=== PATIENT | female | born 1970 | race Caucasian/White ===

== ENCOUNTER 2018-05-30 11:32 | Inpatient (IN) | payer BC ==
[~2018-05-30] VITALS: Ht 157.5 cm; Wt 81.8 kg
[2018-05-30 12:05] VITALS: BP 116/60; PULSE 105; RESP 18
[2018-05-30 12:28] VITALS: Ht 157.5 cm; Wt 81.8 kg
[2018-05-30] MEDS ORDERED: hydrALAzine 20 MG INJ IV PRN (13:30)
[2018-05-30] MEDS ORDERED: NACL 0.9% 3 ML SYG IV SCH (13:30)
[2018-05-30] MEDS ORDERED: HYDROCODONE/APAP (5/325) TAB PO PRN (13:30)
[2018-05-30] MEDS ORDERED: DOCUSATE SODIUM 100 MG CAP PO PRN (13:30)
[2018-05-30] MEDS ORDERED: ACETAMINOPHEN 325 MG TAB PO PRN (13:30)
[2018-05-30] MEDS ORDERED: morphine 2 MG INJ IV PRN (13:30)
[2018-05-30] MEDS ORDERED: ALBUTEROL/IPRATROPIUM (NEB) 3 ML AMP HHN PRN (13:30)
[2018-05-30] MEDS ORDERED: NITROGLYCERIN (SL) 0.4 MG TAB SL PRN (13:30)
[2018-05-30] MEDS ORDERED: MAGNESIUM HYDROXIDE 30ML CUP PO PRN (13:30)
[2018-05-30] MEDS ORDERED: CEFTRIAXONE 1 GM/50 ML (PMX) 50 ML IVPB SCH (14:00)
[2018-05-30] MEDS ORDERED: LORAZEPAM 4 MG/ML VIAL IV PRN (14:00)
[2018-05-30 15:23] VITALS: BP 121/60; PULSE 105; RESP 17
--- NOTE | 2018-05-30 15:46 | HP ---
Date/Time of Note Date/Time of Note DATE: 05/30/18 TIME: 15:40 Assessment/Plan VTE Prophylaxis SCD applied (from Nsg): No SCD contraindicated: other Pharmacological prophylaxis: heparin Lines/Catheters IV Catheter Type (from Nrsg): Saline Lock Urinary Cath still in place: No Assessment/Plan Hospital Course Assessment and plan: 47-year-old female transferred from outside hospital with right flank pain for 2 days with findings of tubo-ovarian abscess/pelvic inflammatory disease. #Right lower quadrant pain: Again most likely the symptoms are from a right tubo-ovarian abscess/PID. -Admit patient, clear liquid diet for now, check TSH A1c lipid panel -Continue broad-spectrum antibiotics including doxycycline and Rocephin, follow final culture results these were taken at the outside hospital -Tylenol PRN pain fevers, per discussion with INTERNATIONAL LOGISTICS MANAGER team who we will consult, they are recommending another CT scan with IV contrast as well as CT- guided IR drainage procedure - this will be ordered -Pain control medications opiates as needed as well -Follow final recommendations from infectious disease and INTERNATIONAL LOGISTICS MANAGER teams Results 24hrs Laboratory Tests Test 05/30/18 13:52 05/30/18 14:55 Lactic Acid Level 1.1 Free Thyroxine 1.20 Prothrombin Time 14.3 Prothrombin Time Ratio 1.1 INR International Normalized Ratio 1.10 Activated Partial Thromboplast Time 30.9 HPI/ROS Admit Date/Time Admit Date/Time May 30, 2018 at 11:32 Hx of Present Illness 47-year-old female with no significant past medical history who was sent over from outside hospital due to insurance purposes. She presented earlier this morning with right flank pain and right lower quadrant pain. She had some subjective fevers and chills as well she had some mild dysuria as well complaints the symptoms have been going on for 2 days prior to the visit to the ER this morning. Denies any nausea vomiting no chest pain or shortness of breath no upper or lower GI bleeding she says that she has been having some abnormal vaginal her heavy periods but this is been going on for some time her main complaint is the right lower quadrant pain. When she presented to the outside hospital she was found with a white blood cell count 21,[address] scan abdomen and pelvis which showed signs of a right-sided tubo-ovarian abscess. She received Rocephin and doxycycline over there in the emergency room before being transferred over here and blood cultures were ordered along with chlamydia and gonorrhea tests. Patient denies any prior history of any pelvic infections. PMH/Family/Social Past Medical History Medications Current Medications IV Flush (NS 3 ml) 3 ml PER PROTOCOL IV ; Start 05/30/18 at 13:30 Ondansetron HCl (Zofran Inj) 4 mg Q6H PRN IV NAUSEA AND/OR VOMITING; Start 05/30/18 at 13:30 Acetaminophen (Tylenol Tab) 650 mg Q6H PRN PO PAIN LEVEL 1-3 OR FEVER Last administered on 05/30/18at 14:24; Admin Dose 650 MG; Start 05/30/18 at 13:30 Acetaminophen/ Hydrocodone Bitart ([place] (5/325)) 1 tab Q6H PRN PO MODERATE PAIN LEVEL 4-6; Start 05/30/18 at 13:30 Morphine Sulfate (morphine) 2 mg Q4H PRN IV SEVERE PAIN LEVEL 7-10; Start 05/30/18 at 13:30 Docusate Sodium (Colace) 100 mg Q12H PRN PO CONSTIPATION; Start 05/30/18 at 13:30 Magnesium Hydroxide (Milk Of Mag) 30 ml DAILY PRN PO CONSTIPATION; Start at 13:30 Pantoprazole (Protonix Iv) 40 mg DAILY@06 IV ; Start 05/31/18 at 06:00 Heparin Sodium (Porcine) (Heparin (5000 Units/1ml)) 5,000 unit Q12 SC ; Start 05/30/18 at 21:00 Sodium Chloride 1,000 ml @ 75 mls/hr [id number] IV ; Start 05/30/18 at 13:18 Lorazepam (Ativan) 0.5 mg Q6H PRN IV ANXIETY; Start 05/30/18 at 14:00 Albuterol/ Ipratropium (Duoneb) 3 ml Q4H RESP THERAPY PRN HHN SHORTNESS OF BREATH; Start 05/30/18 at 13:30 Hydralazine HCl (Apresoline) 10 mg Q6H PRN IV ELEVATED BLOOD PRESSURE; Start at 13:30 Ceftriaxone Sodium 50 ml @ 100 mls/hr Q24H IVPB ; Start 05/30/18 at 14:00 Nitroglycerin (Nitroglycerin (Sl Tab) 0.4 Mg) 1 tab Q5M PRN SL ANGINA; Start 05/30/18 at 13:30 Doxycycline Hyclate 100 mg/ Sodium Chloride 250 ml @ 250 mls/hr Q12 IVPB ; Start 05/30/18 at 21:00 Coded Allergies: No Known Allergy (Unverified , 05/30/18) Social History Smoking Status: Never smoker Exam/Review of Systems Vital Signs Vitals Vital Signs Date Temp Pulse Resp B/P (MAP) Pulse Ox O2 O2 Flow FiO2 Time Delivery Rate 05/30/18 98.6 105 17 121/60 97 15:23 (80) 05/30/18 Room Air 12:05 Exam Exam Physical exam: General: Lying in bed, no acute distress HEENT: Pupils equal round reactive to light extra muscles intact Neck: Supple Respiratory: Clear to all station bilaterally Cardiovascular: S1, S2 heard GI/abdomen: Mild tenderness palpation right lower quadrant area, no rebound or guarding, normal bowel sounds Muscular skeletal: No lower exam edema bilaterally Neurologic: No focal deficits Outside labs: White blood cell count 21.8 Hemoglobin 10 Hematocrit 32 Platelets 626 Sodium 134 Glucose 117 LFTs: Within normal limits UA: Trace leukocyte esterase positive, positive nitrates, 1+ bacteria CT abdomen pelvis without contrast: Impression: 6.2 cm oval-shaped focus in the region of the right ovary with surrounding inflammatory changes. Findings could be infectious, possibly secondary to pelvic inflammatory disease, especially given the enlarged uterus. JOSE DANIEL DENISE May 30, 2018 15:46
[2018-05-30] MEDS ORDERED: ZOLPIDEM 5 MG TAB PO PRN (16:00)
[2018-05-30] MEDS ORDERED: IOHEXOL 14.3 MG(I)/ML (ADULT) BTL PO ONE (16:00)
--- NOTE | 2018-05-30 16:37 | QN ---
Documentation Comment Thank you for consulting with Muffler Mechanic team 47 yo with suspected tuboovarian abscess transferred from [facility] due to Insurance problems Patient reports a 2 days abdomen and back pain with some urinary symptoms CT scan report from [facility] reviewed PMH Denies PSH Denies Allergy NKDA PE VS stable Gen NAD Abd soft Mildly tender on the left side +Left and Right CVA tenderness WBC 21k --->Tumor markers --->CT drainage of possible Abscess --->Pyelonephritis is a highly possible Dx --->Wide spectrum Antibiotics --->Pls let Muffler Mechanic know if there is any new signs and symptoms GEOFFREY MONTEZ M.D. May 30, 2018 16:37
[2018-05-30] MEDS: SOD CHLORIDE 0.45% 1,000 ML IV SCH (16:39)
[2018-05-30] MEDS: ACETAMINOPHEN 500 MG TAB PO PRN (16:40)
--- NOTE | 2018-05-30 18:35 | CONS ---
DATE OF ADMISSION: 05/30/2018 DATE OF CONSULTATION: 05/30/2018 TYPE OF CONSULTATION: Infectious disease. REASON FOR CONSULTATION: Antibiotic management. HISTORY OF PRESENT ILLNESS: Zoila Rodriguez is a 47-year-old female with no significant past medical h istory who was sent from an outside hospital with probable urinary tract infection. The patient pres ented with right flank pain and right lower quadrant pain. She has some subjective fever and chills, some mild dysuria as well as complaints that her symptoms have been going on for 2 days prior to her ER visit this morning. She has been having some abnormal vaginal periods, but this has been going o n for some time as well. When she presented to the outside hospital, she was found to have a white c ount of 21,000. CT scan of the abdomen and pelvis showed signs of right-sided tubo-ovarian abscess. She received Rocephin and doxycycline there in emergency room before being transferred here. Blood cultures were ordered along with chlamydia and GC tests. She denies any history of previous pelvic i nfections. PAST MEDICAL HISTORY: Operations: None. FAMILY HISTORY: Noncontributory. SOCIAL HISTORY: She does not smoke, drink or abuse drugs. ALLERGIES: NONE TO PENICILLIN, SULFA OR FOODS. MEDICATIONS: Per chart. REVIEW OF SYSTEMS: As per HPI. PHYSICAL EXAMINATION: GENERAL: The patient is well-developed, well-nourished female lying in bed in no acute distress. VITAL SIGNS: Stable. She is afebrile. SKIN: Without generalized rash. HEENT: Within normal limits. NECK: Supple. LYMPH NODES: None palpable. CHEST: Decreased breath sounds at the bases. HEART: Without murmur or gallop. ABDOMEN: She has mild tenderness to palpation in the right lower quadrant without rebound or guardin g. Normal bowel sounds. EXTREMITIES: Without cyanosis, clubbing or edema. RECTAL AND GENITAL: Deferred. NEUROLOGIC: No focal neurological abnormality. ANCILLARY LABORATORY DATA: Hemoglobin and hematocrit of 10 and 32, white count 21.8, platelet count 626,000. LFTs were within normal limits. Urinalysis showed trace leukocyte esterase and positive ni trites, 1+ bacteria. DIAGNOSTIC DATA: CT scan of the abdomen and pelvis without contrast showed 6.2 cm oval shaped focus in the region of the right ovary with surrounding inflammatory changes. Findings could be infectious , possibly secondary to pelvic inflammatory disease especially given an enlarged uterus. ASSESSMENT AND PLAN: Gynecology was consulted. Dr. Narayanan noted that there is a suspected tubo-ov janneth abscess, transferred from [facility], 2-day history of abdominal and back pain with so me urinary symptoms. CT scan from [facility] was reviewed. The patient had left and righ t costovertebral angle tenderness according to Dr. Narayanan. He recommended tumor markers, CT draina ge with possible abscess. Pyelonephritis is high possible diagnosis, wide spectrum antibiotics. The patient is currently on doxycycline and ceftriaxone. THE PATIENT IS NOT ALLERGIC TO ANYTHING, so I am going to place her on meropenem instead 1 gram q.12. I will dictate my findings to the hospital a nd to Dr. Narayanan. Dictated By: ALFIE JAFFE MD, JD/JUICE Conf#: [id number] DID#: [id number] CC: DL LIMA MD;*EndCC*
[2018-05-30 20:00] VITALS: BP 122/65; PULSE 105; RESP 18
[2018-05-30] MEDS ORDERED: IBUPROFEN 400 MG TAB PO ONE (21:30)
[2018-05-30] MEDS: MEROPENEM 1 GM/50ML(PMX) 50 ML IVPB SCH (21:33)
[2018-05-30] MEDS: HEPARIN 5,000 UNIT/1 ML VIAL SC SCH (21:36)
[2018-05-30] MEDS: DOXYCYCLINE 100 MG in SOD CHLORIDE 0.9% 250 ML IVPB SCH (22:30)
[2018-05-31] MEDS ORDERED: ACETAMINOPHEN 1000MG/100ML IV 100 ML IVPB ONE (01:00)
[2018-05-31 02:18] VITALS: BP 118/62; PULSE 108; RESP 18
[2018-05-31] MEDS: SOD CHLORIDE 0.45% 1,000 ML IV SCH ×2 (02:38→09:27)
[2018-05-31] MEDS: PANTOPRAZOLE 40 MG INJ IV SCH (06:18)
[2018-05-31 06:24] VITALS: PULSE 93
[2018-05-31 08:02] VITALS: BP 118/67; PULSE 98; RESP 18
[2018-05-31] MEDS: MEROPENEM 1 GM/50ML(PMX) 50 ML IVPB SCH ×2 (08:31→20:20)
[2018-05-31] MEDS: DOXYCYCLINE 100 MG in SOD CHLORIDE 0.9% 250 ML IVPB SCH ×2 (09:08→21:35)
[2018-05-31] MEDS: ONDANSETRON 4 MG INJ IV PRN (09:08)
[2018-05-31] MEDS: HEPARIN 5,000 UNIT/1 ML VIAL SC SCH ×2 (09:09→20:28)
[2018-05-31] MEDS ORDERED: morphine SULFATE/PF (2 MG/2 ML) SYG IV PRN (10:15)
[2018-05-31] MEDS ORDERED: SOD CHLORIDE 0.9% 100 ML ONE (10:15)
[2018-05-31] MEDS ORDERED: IOHEXOL 300MG/ML 150 ML BTL ONE (10:15)
[2018-05-31 14:00] VITALS: BP 128/64; PULSE 114; RESP 18
--- NOTE | 2018-05-31 14:10 | CONS ---
Date/Time of Note Date/Time of Note DATE: 05/31/18 TIME: 14:10 Assessment/Plan Assessment/Plan Hospital Course Patient is alert feels better looks comfortable she is afebrile pain is improving she had a CT of the abdomen this morning that revealed pelvic inflammatory disease and right-sided tubo-ovarian abscess also left sided salpingitis without definite left tubo-ovarian abscess. Inflammatory changes of the mid to distal ureters right greater than left without evidence of hydronephrosis at this time Antimicrobials: Patient is on meropenem and doxycycline. Physical examination: Well-nourished well-developed middle-aged woman who is alert in no distress. Head atraumatic normocephalic sclera nonicteric neck is supple chest rise symmetrical breath sounds clear heart S1-S2 abdomen soft patient has tenderness on palpation more on the right. Extremities without edema or cyanosis. Assessment: 1. Pelvic inflammatory disease with right-sided tubo-ovarian abscess 2. Left sided salpingitis Plan: Patient remained stable we will continue her on current antibiotics, follow with JIGSAWYER recommendations Result Diagram: 05/31/18 0548 05/31/18 0548 Results 24hrs Laboratory Tests Test 05/30/18 14:55 05/30/18 17:34 05/30/18 21:45 05/31/18 00:50 Prothrombin Time 14.3 Prothrombin Time Ratio 1.1 INR International 1.10 Normalized Ratio Activated 30.9 Partial Thromboplast Time Lactic Acid Level 0.8 2.1 *H 0.8 Test 05/31/18 05:48 05/31/18 10:03 White Blood Count 15.9 H Red Blood Count 3.57 L Hemoglobin 8.4 L Hematocrit 27.7 L Mean Corpuscular Volume 77.6 L Mean Corpuscular 23.5 L Hemoglobin Mean Corpuscular 30.3 L Hemoglobin Concent Red Cell Distribution 14.2 Width Platelet Count 502 H Mean Platelet Volume 9.4 Immature Granulocytes % 0.800 H Neutrophils % 74.4 Lymphocytes % 15.4 Monocytes % 8.3 Eosinophils % 0.5 Basophils % 0.6 Nucleated Red Blood 0.0 Cells % Immature Granulocytes # 0.120 H Neutrophils # 11.9 H Lymphocytes # 2.5 Monocytes # 1.3 H Eosinophils # 0.1 Basophils # 0.1 Nucleated Red Blood 0.0 Cells # Sodium Level 141 Potassium Level 3.4 L Chloride Level 105 Carbon Dioxide Level 25 Anion Gap 11 Blood Urea Nitrogen 5 L Creatinine 0.49 Est Glomerular Filtrat > 60 Rate mL/min Glucose Level 104 Hemoglobin A1c 6.1 H Lactic Acid Level 0.9 1.2 Calcium Level 8.3 L Phosphorus Level 4.0 Magnesium Level 2.3 Triglycerides Level 144 Cholesterol Level 150 LDL Cholesterol, 97 Calculated HDL Cholesterol 24 L Cholesterol/HDL Ratio 6.2 Thyroid Stimulating 2.440 Hormone (TSH) Consultation Date/Type/Reason Admit Date/Time May 30, 2018 at 11:32 Initial Consult Date Type of Consult id Exam/Review of Systems Vital Signs Vitals Vital Signs Date Temp Pulse Resp B/P (MAP) Pulse Ox O2 O2 Flow FiO2 Time Delivery Rate 05/31/18 98.2 98 18 118/67 98 Room Air 08:02 (84) Intake and Output 05/30/18 05/30/18 05/31/18 1515:00 23:00 07:00 IntakeIntake Total 700 ml 1050 ml OutputOutput Total 700 ml 550 ml BalanceBalance 0 ml 500 ml Medications Medications Current Medications IV Flush (NS 3 ml) 3 ml PER PROTOCOL IV ; Start 05/30/18 at 13:30 Ondansetron HCl (Zofran Inj) 4 mg Q6H PRN IV NAUSEA AND/OR VOMITING Last administered on 05/31/18at 09:08; Admin Dose 4 MG; Start 05/30/18 at 13:30 Acetaminophen/ Hydrocodone Bitart ([place] (5/325)) 1 tab Q6H PRN PO MODERATE PAIN LEVEL 4-6; Start 05/30/18 at 13:30 Docusate Sodium (Colace) 100 mg Q12H PRN PO CONSTIPATION; Start 05/30/18 at 13:30 Magnesium Hydroxide (Milk Of Mag) 30 ml DAILY PRN PO CONSTIPATION; Start 05/30/18 at 13:30 Pantoprazole (Protonix Iv) 40 mg DAILY@06 IV Last administered on 05/31/18at 06:18; Admin Dose 40 MG; Start 05/31/18 at 06:00 Heparin Sodium (Porcine) (Heparin (5000 Units/1ml)) 5,000 unit Q12 SC Last administered on 05/31/18at 09:09; Admin Dose 5,000 UNIT; Start 05/30/18 at 21:00 Sodium Chloride 1,000 ml @ 75 mls/hr [id number] IV Last administered on 05/31/18 09:27; Admin Dose 75 MLS/HR; Start 05/30/18 at 13:18 Lorazepam (Ativan) 0.5 mg Q6H PRN IV ANXIETY; Start 05/30/18 at 14:00 Albuterol/ Ipratropium (Duoneb) 3 ml Q4H RESP THERAPY PRN HHN SHORTNESS OF BREATH; Start 05/30/18 at 13:30 Hydralazine HCl (Apresoline) 10 mg Q6H PRN IV ELEVATED BLOOD PRESSURE; Start 05/30/18 at 13:30 Nitroglycerin (Nitroglycerin (Sl Tab) 0.4 Mg) 1 tab Q5M PRN SL ANGINA; Start 05/30/18 at 13:30 Doxycycline Hyclate 100 mg/ Sodium Chloride 250 ml @ 250 mls/hr Q12 IVPB Last administered on 05/31/18at 09:08; Admin Dose 250 MLS/HR; Start 05/30/18 at 21:00 Zolpidem Tartrate (Ambien) 5 mg HS PRN PO INSOMNIA; Start 05/30/18 at 16:00 Acetaminophen (Tylenol Tab) 1,000 mg Q6H PRN PO PAIN LEVEL 1-3 OR FEVER Last administered on 05/30/18at 16:40; Admin Dose 1,000 MG; Start 05/30/18 at 16:00 Meropenem/Sodium Chloride 50 ml @ 100 mls/hr Q12 IVPB Last administered on 05/31/18at 08:31; Admin Dose 100 MLS/HR; Start 05/30/18 at 21:00 Potassium Chloride (Potassium Chloride Pwd/Soln) 40 meq ONCE ONCE PO ; Start 05/31/18 at 15:00; Stop 05/31/18 at 15:01 Morphine Sulfate (morphine SULFATE (PF)) 2 mg Q4H PRN IV SEVERE PAIN LEVEL 7-10 Last administered on 05/31/18at 10:21; Admin Dose 2 MG; Start 05/31/18 at 10:15 JUAN KIRK NP May 31, 2018 14:10
[2018-05-31] MEDS: GUAIFENESIN 20 MG/ML 5ML CUP PO PRN ×2 (14:21→21:29)
[2018-05-31] MEDS: IBUPROFEN 600 MG TAB PO PRN (14:21)
[2018-05-31] MEDS ORDERED: GUAIFENESIN 20 MG/ML 5ML CUP PO PRN (14:30)
[2018-05-31] MEDS ORDERED: POTASSIUM CHLORIDE 20 MEQ POWDER FOR ORAL SOLN PO ONE (15:00)
--- NOTE | 2018-05-31 15:48 | QN ---
Documentation Comment F/u Experimental Box Tester Visit Patient is seen by Bedside Pyelonephritis vs TOA No clear Abscess by CT Vs stable WBC decreased to 15k Gen NAD Abd soft NT ND Geinita No blood at perineum --->NO Acute Experimental Box Tester intervention is needed at this time -->Patient complains of irregular menstruation-->She is advised to follow up with a Experimental Box Tester in her [place] to have a D&C&Hysteroscopy or endometrial biopsy -->Please continue the Antibiotics GEOFFREY MONTEZ M.D. May 31, 2018 15:48
--- NOTE | 2018-05-31 16:16 | PN ---
Date/Time of Note Date/Time of Note DATE: 05/31/18 TIME: 16:07 Assessment/Plan VTE Prophylaxis Risk score (from Nsg)>0 risk: 2 SCD applied (from Ns): No SCD contraindicated: other (no) Pharmacological prophylaxis: NA/contraindicated Pharm contraindication: low risk/ambulating Lines/Catheters IV Catheter Type (from Nrsg): Saline Lock Urinary Cath still in place: No Assessment/Plan Assessment/Plan 47 yo obese woman presents with tubo-ovarian abscess and likely PID. #Probable pelvic inflammatory disease #Tubo-ovarian abscess - As demonstrated on repeat CT abdomen here. - Continue broad-spectrum antibiotics including doxycycline and meropenem, follow final culture results these were taken at the outside hospital - ID is following. - IR is unable to drain the complex cyst/abscess near the ovary. - Per discussion with Dr. Narayanan, plan to continue IV antibiotics until sepsis settles down and consider OR in 2-3 days. - Pain meds prn. DVT: SCDs GI: None Result Diagram: 05/31/1848 05/31/18 0548 Subjective 24 Hr Interval Summary Free Text/Dictation Febrile to 101.3 last night. Patient tolerating clear liquid diet with no nausea/vomiting. She is ambulatory and walking actually improves the pain. She does report an episode of gross hematuria. Exam/Review of Systems Vital Signs Vitals Vital Signs Date Temp Pulse Resp B/P (MAP) Pulse Ox O2 O2 Flow FiO2 Time Delivery Rate 05/31/18 98.3 114 18 128/64 96 Room Air 14:00 (85) Intake and Output 05/30/18 05/30/18 05/31/18 1515:00 23:00 07:00 IntakeIntake Total 700 ml 1050 ml OutputOutput Total 700 ml 550 ml BalanceBalance 0 ml 500 ml Exam General: Obese woman lying in bed no acute distress. HEENT: Pupils equal round reactive to light extra muscles intact Neck: Supple Respiratory: Clear to auscultation bilaterally. Back: No CVA tenderness. Cardiovascular: Regular rate and rhythm, no murmurs GI/abdomen: Tender to moderate palpation suprapubic and both lower quadrants. No referred pain or rebound tenderness. Ext: No lower extremity edema bilaterally Outside labs: White blood cell count 21.8 Hemoglobin 10 Hematocrit 32 Platelets 626 Sodium 134 Glucose 117 LFTs: Within normal limits UA: Trace leukocyte esterase positive, positive nitrates, 1+ bacteria CT abdomen pelvis without contrast: Impression: 6.2 cm oval-shaped focus in the region of the right ovary with surrounding inflammatory changes. Findings could be infectious, possibly secondary to pelvic inflammatory disease, especially given the enlarged uterus. Medications Medications Current Medications IV Flush (NS 3 ml) 3 ml PER PROTOCOL IV ; Start 05/30/18 at 13:30 Ondansetron HCl (Zofran Inj) 4 mg Q6H PRN IV NAUSEA AND/OR VOMITING Last administered on 05/31/18at 09:08; Admin Dose 4 MG; Start 05/30/18 at 13:30 Acetaminophen/ Hydrocodone Bitart ([place] (5/325)) 1 tab Q6H PRN PO MODERATE PAIN LEVEL 4-6; Start 05/30/18 at 13:30 Docusate Sodium (Colace) 100 mg Q12H PRN PO CONSTIPATION; Start 05/30/18 at 13:30 Magnesium Hydroxide (Milk Of Mag) 30 ml DAILY PRN PO CONSTIPATION; Start 05/30/18 at 13:30 Pantoprazole (Protonix Iv) 40 mg DAILY@06 IV Last administered on 05/31/18at 06:18; Admin Dose 40 MG; Start 05/31/18 at 06:00 Heparin Sodium (Porcine) (Heparin (5000 Units/1ml)) 5,000 unit Q12 SC Last administered on 05/31/18at 09:09; Admin Dose 5,000 UNIT; Start 05/30/18 at 21:00 Sodium Chloride 1,000 ml @ 75 mls/hr [id number] IV Last administered on 05/31/18at 09:27; Admin Dose 75 MLS/HR; Start 05/30/18 at 13:18 Lorazepam (Ativan) 0.5 mg Q6H PRN IV ANXIETY; Start 05/30/18 at 14:00 Albuterol/ Ipratropium (Duoneb) 3 ml Q4H RESP THERAPY PRN HHN SHORTNESS OF BREATH; Start 05/30/18 at 13:30 Hydralazine HCl (Apresoline) 10 mg Q6H PRN IV ELEVATED BLOOD PRESSURE; Start 05/30/18 at 13:30 Nitroglycerin (Nitroglycerin (Sl Tab) 0.4 Mg) 1 tab Q5M PRN SL ANGINA; Start 05/30/18 at 13:30 Doxycycline Hyclate 100 mg/ Sodium Chloride 250 ml @ 250 mls/hr Q12 IVPB Last administered on 05/31/18 09:08; Admin Dose 250 MLS/HR; Start 05/30/18 at 21:00 Zolpidem Tartrate (Ambien) 5 mg HS PRN PO INSOMNIA; Start 05/30/18 at 16:00 Acetaminophen (Tylenol Tab) 1,000 mg Q6H PRN PO PAIN LEVEL 1-3 OR FEVER Last administered on 05/30/18at 16:40; Admin Dose 1,000 MG; Start 05/30/18 at 16:00 Meropenem/Sodium Chloride 50 ml @ 100 mls/hr Q12 IVPB Last administered on 05/31/18at 08:31; Admin Dose 100 MLS/HR; Start 05/30/18 at 21:00 Morphine Sulfate (morphine SULFATE (PF)) 2 mg Q4H PRN IV SEVERE PAIN LEVEL 7-10 Last administered on 05/31/18 10:21; Admin Dose 2 MG; Start 05/31/18 at 10:15 Ibuprofen (Motrin) 600 mg Q6H PRN PO MILD PAIN LEVEL 1-3 Last administered on 05/31/18 14:21; Admin Dose 600 MG; Start 05/31/18 at 14:30 Guaifenesin (Robitussin Liquid Cup) 400 mg Q4H PRN PO COUGH Last administered on 05/31/18 14:21; Admin Dose 400 MG; Start 05/31/18 at 14:30 CATHERINE BEEBE MD May 31, 2018 16:16
[2018-05-31 19:52] VITALS: BP 108/63; PULSE 104; RESP 18
[2018-05-31] MEDS: ACETAMINOPHEN 500 MG TAB PO PRN (20:35)
[2018-06-01 02:00] VITALS: BP 112/66; PULSE 100; RESP 18
[2018-06-01] MEDS: IBUPROFEN 600 MG TAB PO PRN ×2 (03:29→14:21)
[2018-06-01] MEDS: SOD CHLORIDE 0.45% 1,000 ML IV SCH ×2 (03:31→17:40)
[2018-06-01] MEDS: GUAIFENESIN 20 MG/ML 5ML CUP PO PRN ×4 (03:35→20:33)
[2018-06-01] MEDS: PANTOPRAZOLE 40 MG INJ IV SCH (06:16)
[2018-06-01 08:00] VITALS: BP 113/57; PULSE 94; RESP 18
[2018-06-01] MEDS: MEROPENEM 1 GM/50ML(PMX) 50 ML IVPB SCH ×2 (09:00→20:29)
[2018-06-01] MEDS: HEPARIN 5,000 UNIT/1 ML VIAL SC SCH ×2 (09:01→20:38)
[2018-06-01] MEDS: ACETAMINOPHEN 500 MG TAB PO PRN ×2 (09:04→20:35)
[2018-06-01] MEDS: DOXYCYCLINE 100 MG in SOD CHLORIDE 0.9% 250 ML IVPB SCH ×2 (11:03→21:29)
[2018-06-01 15:20] VITALS: BP 113/55; PULSE 89; RESP 18
--- NOTE | 2018-06-01 15:28 | CONS ---
Date/Time of Note Date/Time of Note DATE: 06/01/18 TIME: 15:19 Assessment/Plan Assessment/Plan Hospital Course Patient is alert and feels much better no fevers WBC today 14.5 neutrophils 79.8 BUN 5 creatinine 0.51 urinalysis came back positive for leukocyte esterase, WBCs and few bacteria CT of the abdomen revealed pelvic inflammatory disease and right-sided tubo- ovarian abscess also left sided salpingitis without definite left tubo-ovarian abscess. Inflammatory changes of the mid to distal ureters right greater than left without evidence of hydronephrosis at this time Antimicrobials: Meropenem and doxycycline. Physical examination: Well-nourished well-developed middle-aged woman who is alert in no distress. Head atraumatic normocephalic sclera nonicteric neck is supple chest rise symmetrical breath sounds clear heart S1-S2 abdomen soft patient has tenderness on palpation more on the right. Extremities without edema or cyanosis. Assessment: 1. Pelvic inflammatory disease with right-sided tubo-ovarian abscess versus acute pyelonephritis 2. Left sided salpingitis Plan: Doing better, per MEDIA SALES REPRESENTATIVE note no intervention needed at this time, will await for urine culture, continue antibiotics Result Diagram: 06/01/18 0452 06/01/18 0452 Results 24hrs Laboratory Tests Test 06/01/18 04:52 06/01/18 13:45 White Blood Count 14.5 H Red Blood Count 3.40 L Hemoglobin 8.0 L Hematocrit 26.4 L Mean Corpuscular Volume 77.6 L Mean Corpuscular Hemoglobin 23.5 L Mean Corpuscular Hemoglobin Concent 30.3 L Red Cell Distribution Width 14.3 Platelet Count 504 H Mean Platelet Volume 9.2 Immature Granulocytes % 0.600 H Neutrophils % 79.8 H Lymphocytes % 12.0 L Monocytes % 6.3 Eosinophils % 0.7 Basophils % 0.6 Nucleated Red Blood Cells % 0.0 Immature Granulocytes # 0.090 H Neutrophils # 11.6 H Lymphocytes # 1.7 Monocytes # 0.9 Eosinophils # 0.1 Basophils # 0.1 Nucleated Red Blood Cells # 0.0 Sodium Level 140 Potassium Level 3.5 Chloride Level 107 Carbon Dioxide Level 25 Anion Gap 8 Blood Urea Nitrogen 5 L Creatinine 0.51 Est Glomerular Filtrat Rate mL/min > 60 Glucose Level 117 Calcium Level 8.2 L Urine Color YELLOW Urine Clarity SLIGHTLY CLOUDY A Urine pH 5.0 Urine Specific [place] 1.021 Urine Ketones NEGATIVE Urine Nitrite NEGATIVE Urine Bilirubin NEGATIVE Urine Urobilinogen 1+ H Urine Leukocyte Esterase TRACE A Urine Microscopic RBC > 182 H Urine Microscopic WBC 13 H Urine Squamous Epithelial Cells FEW Urine Bacteria FEW A Urine Mucus FEW A Urine Hemoglobin 2+ H Urine Glucose NEGATIVE Urine Total Protein 1+ H Consultation Date/Type/Reason Admit Date/Time May 30, 2018 at 11:32 Initial Consult Date Type of Consult id Exam/Review of Systems Vital Signs Vitals Vital Signs Date Temp Pulse Resp B/P (MAP) Pulse Ox O2 O2 Flow FiO2 Time Delivery Rate 06/01/18 97.7 94 18 113/57 98 Room Air 08:00 (75) Intake and Output 05/31/18 05/31/18 06/01/18 1515:00 23:00 07:00 IntakeIntake Total 1800 ml 2050 ml 720 ml OutputOutput Total 900 ml 800 ml 2300 ml BalanceBalance 900 ml 1250 ml -1580 ml Medications Medications Current Medications IV Flush (NS 3 ml) 3 ml PER PROTOCOL IV ; Start 05/30/18 at 13:30 Ondansetron HCl (Zofran Inj) 4 mg Q6H PRN IV NAUSEA AND/OR VOMITING Last administered on 05/31/18at 09:08; Admin Dose 4 MG; Start 05/30/18 at 13:30 Acetaminophen/ Hydrocodone Bitart ([place] (5/325)) 1 tab Q6H PRN PO MODERATE PAIN LEVEL 4-6; Start 05/30/18 at 13:30 Docusate Sodium (Colace) 100 mg Q12H PRN PO CONSTIPATION; Start 05/30/18 at 13:30 Magnesium Hydroxide (Milk Of Mag) 30 ml DAILY PRN PO CONSTIPATION; Start 05/30/18 at 13:30 Pantoprazole (Protonix Iv) 40 mg DAILY@06 IV Last administered on 06/01/18at 06:16; Admin Dose 40 MG; Start 05/31/18 at 06:00 Heparin Sodium (Porcine) (Heparin (5000 Units/1ml)) 5,000 unit Q12 SC Last administered on 06/01/18at 09:01; Admin Dose 5,000 UNIT; Start 05/30/18 at 21:00 Sodium Chloride 1,000 ml @ 75 mls/hr [id number] IV Last administered on 06/01/18 03:31; Admin Dose 75 MLS/HR; Start 05/30/18 at 13:18 Lorazepam (Ativan) 0.5 mg Q6H PRN IV ANXIETY; Start 05/30/18 at 14:00 Albuterol/ Ipratropium (Duoneb) 3 ml Q4H RESP THERAPY PRN HHN SHORTNESS OF [place] TH; Start 05/30/18 at 13:30 Hydralazine HCl (Apresoline) 10 mg Q6H PRN IV ELEVATED BLOOD PRESSURE; Start 05/30/18 at 13:30 Nitroglycerin (Nitroglycerin (Sl Tab) 0.4 Mg) 1 tab Q5M PRN SL ANGINA; Start 05/30/18 at 13:30 Doxycycline Hyclate 100 mg/ Sodium Chloride 250 ml @ 250 mls/hr Q12 IVPB Last administered on 06/01/18 11:03; Admin Dose 250 MLS/HR; Start 05/30/18 at 21:00 Zolpidem Tartrate (Ambien) 5 mg HS PRN PO INSOMNIA; Start 05/30/18 at 16:00 Acetaminophen (Tylenol Tab) 1,000 mg Q6H PRN PO PAIN LEVEL 1-3 OR FEVER Last administered on 06/01/18 09:04; Admin Dose 1,000 MG; Start 05/30/18 at 16:00 Meropenem/Sodium Chloride 50 ml @ 100 mls/hr Q12 IVPB Last administered on 06/01/18 09:00; Admin Dose 100 MLS/HR; Start 05/30/18 at 21:00 Morphine Sulfate (morphine SULFATE (PF)) 2 mg Q4H PRN IV SEVERE PAIN LEVEL 7-10 Last administered on 05/31/18 10:21; Admin Dose 2 MG; Start 05/31/18 at 10:15 Ibuprofen (Motrin) 600 mg Q6H PRN PO MILD PAIN LEVEL 1-3 Last administered on 06/01/18 14:21; Admin Dose 600 MG; Start 05/31/18 at 14:30 Guaifenesin (Robitussin Liquid Cup) 400 mg Q4H PRN PO COUGH Last administered on 06/01/18 15:04; Admin Dose 400 MG; Start 05/31/18 at 14:30 Vitamin A/Vitamin D (Vitamin A & D Oint) 1 applic ONCE ONCE TOP ; Start 06/01/18 at 15:30; Stop 06/01/18 at 15:31 JUAN KIRK NP Jun 01, 2018 15:28
[2018-06-01] MEDS ORDERED: VITAMIN A & D 5 GM OINT PACKET TOP ONE (15:30)
--- NOTE | 2018-06-01 17:55 | PN ---
Date/Time of Note Date/Time of Note DATE: 06/01/18 TIME: 17:53 Assessment/Plan VTE Prophylaxis Risk score (from Ns)>0 risk: 2 SCD applied (from Ns): No SCD contraindicated: other (no) Pharmacological prophylaxis: heparin Lines/Catheters IV Catheter Type (from Nrs): Saline Lock Urinary Cath still in place: No Assessment/Plan Assessment/Plan 47 yo obese woman presents with tubo-ovarian abscess and likely PID. #Probable pelvic inflammatory disease #Tubo-ovarian abscess - As demonstrated on repeat CT abdomen here. - Continue broad-spectrum antibiotics including doxycycline and meropenem, follow final culture results these were taken at the outside hospital - ID is following. - IR is unable to drain the complex cyst/abscess near the ovary. - Per discussion with Dr. Narayanan, plan to continue IV antibiotics until sepsis settles down and consider OR in 1-2 days. - Pain meds prn. DVT: SCDs GI: None Result Diagram: 06/01/18 0452 06/01/18 0452 Results 24hrs Laboratory Tests Test 06/01/18 04:52 06/01/18 13:45 White Blood Count 14.5 H Red Blood Count 3.40 L Hemoglobin 8.0 L Hematocrit 26.4 L Mean Corpuscular Volume 77.6 L Mean Corpuscular Hemoglobin 23.5 L Mean Corpuscular Hemoglobin Concent 30.3 L Red Cell Distribution Width 14.3 Platelet Count 504 H Mean Platelet Volume 9.2 Immature Granulocytes % 0.600 H Neutrophils % 79.8 H Lymphocytes % 12.0 L Monocytes % 6.3 Eosinophils % 0.7 Basophils % 0.6 Nucleated Red Blood Cells % 0.0 Immature Granulocytes # 0.090 H Neutrophils # 11.6 H Lymphocytes # 1.7 Monocytes # 0.9 Eosinophils # 0.1 Basophils # 0.1 Nucleated Red Blood Cells # 0.0 Sodium Level 140 Potassium Level 3.5 Chloride Level 107 Carbon Dioxide Level 25 Anion Gap 8 Blood Urea Nitrogen 5 L Creatinine 0.51 Est Glomerular Filtrat Rate mL/min > 60 Glucose Level 117 Calcium Level 8.2 L Urine Color YELLOW Urine Clarity SLIGHTLY CLOUDY A Urine pH 5.0 Urine Specific [place] 1.021 Urine Ketones NEGATIVE Urine Nitrite NEGATIVE Urine Bilirubin NEGATIVE Urine Urobilinogen 1+ H Urine Leukocyte Esterase TRACE A Urine Microscopic RBC > 182 H Urine Microscopic WBC 13 H Urine Squamous Epithelial Cells FEW Urine Bacteria FEW A Urine Mucus FEW A Urine Hemoglobin 2+ H Urine Glucose NEGATIVE Urine Total Protein 1+ H Subjective 24 Hr Interval Summary Free Text/Dictation No acute overnight events. Mild improvement in abdominal pain. She is ambulatory. Had several events of pelvic cramps followed by blood vaginal discharge with clots. Exam/Review of Systems Vital Signs Vitals Vital Signs Date Temp Pulse Resp B/P (MAP) Pulse Ox O2 O2 Flow FiO2 Time Delivery Rate 06/01/18 98.7 89 18 113/55 98 Room Air 15:20 (74) Intake and Output 05/31/18 05/31/18 06/01/18 1414:59 22:59 06:59 IntakeIntake Total 1800 ml 2050 ml 720 ml OutputOutput Total 900 ml 800 ml 2300 ml BalanceBalance 900 ml 1250 ml -1580 ml Exam General: Obese woman lying in bed no acute distress. HEENT: Pupils equal round reactive to light extra muscles intact Neck: Supple Respiratory: Clear to auscultation bilaterally. Back: No CVA tenderness. Cardiovascular: Regular rate and rhythm, no murmurs GI/abdomen: Tender to moderate palpation suprapubic and both lower quadrants. No referred pain or rebound tenderness. Ext: No lower extremity edema bilaterally Medications Medications Current Medications IV Flush (NS 3 ml) 3 ml PER PROTOCOL IV ; Start 05/30/18 at 13:30 Ondansetron HCl (Zofran Inj) 4 mg Q6H PRN IV NAUSEA AND/OR VOMITING Last administered on 05/31/18at 09:08; Admin Dose 4 MG; Start 05/30/18 at 13:30 Acetaminophen/ Hydrocodone Bitart ([place] (5/325)) 1 tab Q6H PRN PO MODERATE PAIN LEVEL 4-6; Start 05/30/18 at 13:30 Docusate Sodium (Colace) 100 mg Q12H PRN PO CONSTIPATION; Start 05/30/18 at 13:30 Magnesium Hydroxide (Milk Of Mag) 30 ml DAILY PRN PO CONSTIPATION; Start 05/30/18 at 13:30 Pantoprazole (Protonix Iv) 40 mg DAILY@06 IV Last administered on 06/01/18at 06:16; Admin Dose 40 MG; Start 05/31/18 at 06:00 Heparin Sodium (Porcine) (Heparin (5000 Units/1ml)) 5,000 unit Q12 SC Last administered on 06/01/18 09:01; Admin Dose 5,000 UNIT; Start 05/30/18 at 21:00 Sodium Chloride 1,000 ml @ 75 mls/hr [id number] IV Last administered on 06/01/18 17:40; Admin Dose 75 MLS/HR; Start 05/30/18 at 13:18 Lorazepam (Ativan) 0.5 mg Q6H PRN IV ANXIETY; Start 05/30/18 at 14:00 Albuterol/ Ipratropium (Duoneb) 3 ml Q4H RESP THERAPY PRN HHN SHORTNESS OF BREATH; Start 05/30/18 at 13:30 Hydralazine HCl (Apresoline) 10 mg Q6H PRN IV ELEVATED BLOOD PRESSURE; Start 05/30/18 at 13:30 Nitroglycerin (Nitroglycerin (Sl Tab) 0.4 Mg) 1 tab Q5M PRN SL ANGINA; Start 05/30/18 at 13:30 Doxycycline Hyclate 100 mg/ Sodium Chloride 250 ml @ 250 mls/hr Q12 IVPB Last administered on 06/01/18 11:03; Admin Dose 250 MLS/HR; Start 05/30/18 at 21:00 Zolpidem Tartrate (Ambien) 5 mg HS PRN PO INSOMNIA; Start 05/30/18 at 16:00 Acetaminophen (Tylenol Tab) 1,000 mg Q6H PRN PO PAIN LEVEL 1-3 OR FEVER Last administered on 06/01/18 09:04; Admin Dose 1,000 MG; Start 05/30/18 at 16:00 Meropenem/Sodium Chloride 50 ml @ 100 mls/hr Q12 IVPB Last administered on 06/01/18 09:00; Admin Dose 100 MLS/HR; Start 05/30/18 at 21:00 Morphine Sulfate (morphine SULFATE (PF)) 2 mg Q4H PRN IV SEVERE PAIN LEVEL 7-10 Last administered on 05/31/18 10:21; Admin Dose 2 MG; Start 05/31/18 at 10:15 Ibuprofen (Motrin) 600 mg Q6H PRN PO MILD PAIN LEVEL 1-3 Last administered on 06/01/18 14:21; Admin Dose 600 MG; Start 05/31/18 at 14:30 Guaifenesin (Robitussin Liquid Cup) 400 mg Q4H PRN PO COUGH Last administered on 06/01/18at 15:04; Admin Dose 400 MG; Start 05/31/18 at 14:30 CATHERINE BEEBE MD Jun 01, 2018 17:55
[2018-06-01 20:06] VITALS: BP 122/68; PULSE 95; RESP 18
[2018-06-02] MEDS: IBUPROFEN 600 MG TAB PO PRN ×3 (00:56→23:13)
[2018-06-02 02:00] VITALS: BP 108/59; PULSE 99; RESP 18
[2018-06-02] MEDS: PANTOPRAZOLE 40 MG INJ IV SCH (05:30)
[2018-06-02 08:02] VITALS: BP 111/57; PULSE 86; RESP 16
[2018-06-02] MEDS: SOD CHLORIDE 0.45% 1,000 ML IV SCH (09:01)
[2018-06-02] MEDS: MEROPENEM 1 GM/50ML(PMX) 50 ML IVPB SCH ×2 (09:13→20:27)
[2018-06-02] MEDS: HEPARIN 5,000 UNIT/1 ML VIAL SC SCH (09:20)
[2018-06-02] MEDS: DOXYCYCLINE 100 MG in SOD CHLORIDE 0.9% 250 ML IVPB SCH ×2 (11:13→22:07)
--- NOTE | 2018-06-02 13:51 | PN ---
Date/Time of Note Date/Time of Note DATE: 06/02/18 TIME: 13:43 Assessment/Plan VTE Prophylaxis Risk score (from [facility])>0 risk: 2 SCD applied (from [facility]): No SCD contraindicated: other (no) Pharmacological prophylaxis: NA/contraindicated Pharm contraindication: low risk/ambulating Lines/Catheters IV Catheter Type (from [facility]): Saline Lock Urinary Cath still in place: No Assessment/Plan Assessment/Plan 47 yo obese woman presents with tubo-ovarian abscess and likely PID. #Probable pelvic inflammatory disease #Tubo-ovarian abscess - As demonstrated on repeat CT abdomen here. - Continue broad-spectrum antibiotics including doxycycline and meropenem, - At [facility], urine and blood cultures drawn before admission are all NEGATIVE, finalized. - ID is following. - IR is unable to drain the complex cyst/abscess near the ovary. - Per discussion with Dr. Narayanan, no plan for inpatient surgery unless condition significantly worsens. Instead plan for outpatient SENIOR LINUX ENGINEER evaluation.. - Pain meds prn. DVT: SCDs GI: None Dispo: If cultures negative x3 days tomorrow and patient feeling well, plan for discharge. Result Diagram: 06/02/1818 06/02/1818 Results 24hrs Laboratory Tests Test 06/01/18 13:45 06/02/18 06:18 Urine Color YELLOW Urine Clarity SLIGHTLY CLOUDY A Urine pH 5.0 Urine Specific [place] 1.021 Urine Ketones NEGATIVE Urine Nitrite NEGATIVE Urine Bilirubin NEGATIVE Urine Urobilinogen 1+ H Urine Leukocyte Esterase TRACE A Urine Microscopic RBC > 182 H Urine Microscopic WBC 13 H Urine Squamous Epithelial Cells FEW Urine Bacteria FEW A Urine Mucus FEW A Urine Hemoglobin 2+ H Urine Glucose NEGATIVE Urine Total Protein 1+ H White Blood Count 12.6 H Red Blood Count 3.37 L Hemoglobin 7.9 L Hematocrit 26.2 L Mean Corpuscular Volume 77.7 L Mean Corpuscular Hemoglobin 23.4 L Mean Corpuscular Hemoglobin Concent 30.2 L Red Cell Distribution Width 14.6 H Platelet Count 556 H Mean Platelet Volume 9.5 Immature Granulocytes % 0.600 H Neutrophils % 70.6 Lymphocytes % 20.4 Monocytes % 6.0 Eosinophils % 1.4 Basophils % 1.0 Nucleated Red Blood Cells % 0.0 Immature Granulocytes # 0.070 H Neutrophils # 8.9 H Lymphocytes # 2.6 Monocytes # 0.8 Eosinophils # 0.2 Basophils # 0.1 Nucleated Red Blood Cells # 0.0 Sodium Level 139 Potassium Level 3.9 Chloride Level 108 Carbon Dioxide Level 24 Anion Gap 7 Blood Urea Nitrogen 8 Creatinine 0.50 Est Glomerular Filtrat Rate mL/min > 60 Glucose Level 103 Calcium Level 8.3 L Subjective 24 Hr Interval Summary Free Text/Dictation No acute overnight events. She is ambulating, tolerating diet. Overall feeling well. She does still have pelvic cramping with bleeding and clots. Last menses was 05/20 so this is early. 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 Exam/Review of Systems Vital Signs Vitals Vital Signs Date Temp Pulse Resp B/P (MAP) Pulse Ox O2 O2 Flow FiO2 Time Delivery Rate 06/02/18 97.8 86 16 111/57 98 08:02 (75) 06/02/18 Room Air 02:00 Intake and Output 06/01/18 06/01/18 06/02/18 1515:00 23:00 07:00 IntakeIntake Total 300 ml 1900 ml BalanceBalance 300 ml 1900 ml Exam General: Obese woman lying in bed no acute distress. HEENT: Pupils equal round reactive to light extra muscles intact Neck: Supple Respiratory: Clear to auscultation bilaterally. Back: No CVA tenderness. Cardiovascular: Regular rate and rhythm, no murmurs GI/abdomen: Tender to moderate palpation suprapubic and both lower quadrants. No referred pain or rebound tenderness. Ext: No lower extremity edema bilaterally Medications Medications Current Medications IV Flush (NS 3 ml) 3 ml PER PROTOCOL IV ; Start 05/30/18 at 13:30 Ondansetron HCl (Zofran Inj) 4 mg Q6H PRN IV NAUSEA AND/OR VOMITING Last administered on 05/31/18at 09:08; Admin Dose 4 MG; Start 05/30/18 at 13:30 Acetaminophen/ Hydrocodone Bitart ([place] (5/325)) 1 tab Q6H PRN PO MODERATE PAIN LEVEL 4-6; Start 05/30/18 at 13:30 Docusate Sodium (Colace) 100 mg Q12H PRN PO CONSTIPATION; Start 05/30/18 at 13:30 Magnesium Hydroxide (Milk Of Mag) 30 ml DAILY PRN PO CONSTIPATION; Start 05/30/18 at 13:30 Pantoprazole (Protonix Iv) 40 mg DAILY@06 IV Last administered on 06/02/18 05:30; Admin Dose 40 MG; Start 05/31/18 at 06:00 Albuterol/ Ipratropium (Duoneb) 3 ml Q4H RESP THERAPY PRN HHN SHORTNESS OF BREATH; Start 05/30/18 at 13:30 Hydralazine HCl (Apresoline) 10 mg Q6H PRN IV ELEVATED BLOOD PRESSURE; Start 05/30/18 at 13:30 Nitroglycerin (Nitroglycerin (Sl Tab) 0.4 Mg) 1 tab Q5M PRN SL ANGINA; Start 05/30/18 at 13:30 Doxycycline Hyclate 100 mg/ Sodium Chloride 250 ml @ 250 mls/hr Q12 IVPB Last administered on 06/02/18 11:13; Admin Dose 250 MLS/HR; Start 05/30/18 at 21:00 Zolpidem Tartrate (Ambien) 5 mg HS PRN PO INSOMNIA; Start 05/30/18 at 16:00 Acetaminophen (Tylenol Tab) 1,000 mg Q6H PRN PO PAIN LEVEL 1-3 OR FEVER Last administered on 06/01/18 20:35; Admin Dose 1,000 MG; Start 05/30/18 at 16:00 Meropenem/Sodium Chloride 50 ml @ 100 mls/hr Q12 IVPB Last administered on 06/02/18 09:13; Admin Dose 100 MLS/HR; Start 05/30/18 at 21:00 Ibuprofen (Motrin) 600 mg Q6H PRN PO MILD PAIN LEVEL 1-3 Last administered on 06/02/18 11:13; Admin Dose 600 MG; Start 05/31/18 at 14:30 Guaifenesin (Robitussin Liquid Cup) 400 mg Q4H PRN PO COUGH Last administered on 06/01/18 20:33; Admin Dose 400 MG; Start 05/31/18 at 14:30 CATHERINE BEEBE MD Jun 02, 2018 13:51
--- NOTE | 2018-06-02 14:07 | CONS ---
Date/Time of Note Date/Time of Note DATE: 06/02/18 TIME: 14:04 Assessment/Plan Assessment/Plan Hospital Course No acute changes, alert, feels good, no fevers CT of the abdomen revealed pelvic inflammatory disease and right-sided tubo- ovarian abscess also left sided salpingitis without definite left tubo-ovarian abscess. Inflammatory changes of the mid to distal ureters right greater than left without evidence of hydronephrosis at this time Antimicrobials: Meropenem Doxycycline. Physical examination: Well-nourished well-developed middle-aged woman who is alert in no distress. Head atraumatic normocephalic sclera nonicteric neck is supple chest rise symmetrical breath sounds clear heart S1-S2 abdomen soft p atient has tenderness on palpation more on the right. Extremities without edema or cyanosis. Assessment: 1. Pelvic inflammatory disease with right-sided tubo-ovarian abscess versus acute pyelonephritis 2. Left sided salpingitis Plan: Remains stable, urine cx neg, continue antibiotics, consider repeat CT abdomen at the end of therapy Result Diagram: 06/02/18 0618 06/02/18 0618 Results 24hrs Laboratory Tests Test 06/02/18 06:18 White Blood Count 12.6 H Red Blood Count 3.37 L Hemoglobin 7.9 L Hematocrit 26.2 L Mean Corpuscular Volume 77.7 L Mean Corpuscular Hemoglobin 23.4 L Mean Corpuscular Hemoglobin Concent 30.2 L Red Cell Distribution Width 14.6 H Platelet Count 556 H Mean Platelet Volume 9.5 Immature Granulocytes % 0.600 H Neutrophils % 70.6 Lymphocytes % 20.4 Monocytes % 6.0 Eosinophils % 1.4 Basophils % 1.0 Nucleated Red Blood Cells % 0.0 Immature Granulocytes # 0.070 H Neutrophils # 8.9 H Lymphocytes # 2.6 Monocytes # 0.8 Eosinophils # 0.2 Basophils # 0.1 Nucleated Red Blood Cells # 0.0 Sodium Level 139 Potassium Level 3.9 Chloride Level 108 Carbon Dioxide Level 24 Anion Gap 7 Blood Urea Nitrogen 8 Creatinine 0.50 Est Glomerular Filtrat Rate mL/min > 60 Glucose Level 103 Calcium Level 8.3 L Consultation Date/Type/Reason Admit Date/Time May 30, 2018 at 11:32 Initial Consult Date Type of Consult id Exam/Review of Systems Vital Signs Vitals Vital Signs Date Temp Pulse Resp B/P (MAP) Pulse Ox O2 O2 Flow FiO2 Time Delivery Rate 06/02/18 97.8 86 16 111/57 98 08:02 (75) 06/02/18 Room Air 02:00 Intake and Output 06/01/18 06/01/18 06/02/18 1515:00 23:00 07:00 IntakeIntake Total 300 ml 1900 ml BalanceBalance 300 ml 1900 ml Medications Medications Current Medications IV Flush (NS 3 ml) 3 ml PER PROTOCOL IV ; Start 05/30/18 at 13:30 Ondansetron HCl (Zofran Inj) 4 mg Q6H PRN IV NAUSEA AND/OR VOMITING Last administered on 05/31/18at 09:08; Admin Dose 4 MG; Start 05/30/18 at 13:30 Acetaminophen/ Hydrocodone Bitart ([place] (5/325)) 1 tab Q6H PRN PO MODERATE PAIN LEVEL 4-6; Start 05/30/18 at 13:30 Docusate Sodium (Colace) 100 mg Q12H PRN PO CONSTIPATION; Start 05/30/18 at 13:30 Magnesium Hydroxide (Milk Of Mag) 30 ml DAILY PRN PO CONSTIPATION; Start 05/30/18 at 13:30 Pantoprazole (Protonix Iv) 40 mg DAILY@06 IV Last administered on 06/02/18at 05:30; Admin Dose 40 MG; Start 05/31/18 at 06:00 Albuterol/ Ipratropium (Duoneb) 3 ml Q4H RESP THERAPY PRN HHN SHORTNESS OF BREATH; Start 05/30/18 at 13:30 Hydralazine HCl (Apresoline) 10 mg Q6H PRN IV ELEVATED BLOOD PRESSURE; Start 05/30/18 at 13:30 Nitroglycerin (Nitroglycerin (Sl Tab) 0.4 Mg) 1 tab Q5M PRN SL ANGINA; Start 05/30/18 at 13:30 Doxycycline Hyclate 100 mg/ Sodium Chloride 250 ml @ 250 mls/hr Q12 IVPB Last administered on 06/02/18at 11:13; Admin Dose 250 MLS/HR; Start 05/30/18 at 21:00 Zolpidem Tartrate (Ambien) 5 mg HS PRN PO INSOMNIA; Start 05/30/18 at 16:00 Acetaminophen (Tylenol Tab) 1,000 mg Q6H PRN PO PAIN LEVEL 1-3 OR FEVER Last administered on 06/01/18 20:35; Admin Dose 1,000 MG; Start 05/30/18 at 16:00 Meropenem/Sodium Chloride 50 ml @ 100 mls/hr Q12 IVPB Last administered on 06/02/18 09:13; Admin Dose 100 MLS/HR; Start 05/30/18 at 21:00 Ibuprofen (Motrin) 600 mg Q6H PRN PO MILD PAIN LEVEL 1-3 Last administered on 06/02/18 11:13; Admin Dose 600 MG; Start 05/31/18 at 14:30 Guaifenesin (Robitussin Liquid Cup) 400 mg Q4H PRN PO COUGH Last administered on 06/01/18 20:33; Admin Dose 400 MG; Start 05/31/18 at 14:30 JUAN KIRK NP Jun 02, 2018 14:07
[2018-06-02 14:34] VITALS: BP 113/59; PULSE 93; RESP 18
[2018-06-02] MEDS: ONDANSETRON 4 MG INJ IV PRN (17:22)
[2018-06-02] MEDS: ACETAMINOPHEN 500 MG TAB PO PRN (17:23)
[2018-06-02 20:04] VITALS: BP 103/56; PULSE 93; RESP 16
--- NOTE | 2018-06-03 01:56 | QN ---
Documentation Comment 47-year-old with tubo-ovarian cyst. She is currently afebrile, vital signs is stable. Her exam is unremarkable. She is currently on doxycycline 100 mg twice daily and meropenem. She is being followed by ID and hospitalist. At this time she is not a candidate for drainage of abscess per IR or surgery. Continue antibiotic for overall 14 days. She needs follow-up with her pottery kiln builder as an outpatient. Labs, CT scan discussed in detail with patient and her family. All expressed understanding. All of their questions answered. She will followed by laborist 2) anemia and history of abnormal uterine bleeding. I strongly recommend follow-up with her primary pottery kiln builder. Serum iron, TIBC and ferritin ordered. Follow-up with results. PHILL ZHENG Jun 03, 2018 01:56
[2018-06-03 02:40] VITALS: BP 112/57; PULSE 96; RESP 18
[2018-06-03] MEDS: PANTOPRAZOLE 40 MG INJ IV SCH (06:18)
[2018-06-03] MEDS: ONDANSETRON 4 MG INJ IV PRN (06:44)
[2018-06-03 07:20] VITALS: BP 108/64; PULSE 88; RESP 16
[2018-06-03] MEDS: IBUPROFEN 600 MG TAB PO PRN (07:43)
[2018-06-03] MEDS: DOXYCYCLINE 100 MG in SOD CHLORIDE 0.9% 250 ML IVPB SCH (09:43)
[2018-06-03] MEDS ORDERED: ONDA4TAB95 PO (10:25)
[2018-06-03] MEDS ORDERED: METR500T PO (10:25)
[2018-06-03] MEDS ORDERED: IBUP-1542 PO (10:25)
[2018-06-03] MEDS ORDERED: [UNRECOGNIZED DRUG - CODE] PO (10:25)
--- NOTE | 2018-06-03 10:26 | PDOCDIS ---
Discharge Instructions DIAGNOSIS Discharge Diagnosis Pelvic inflammatory disease; tubo-ovarian abscess CONDITION [id number] Patient Condition: [id number] Good HOME CARE INSTRUCTIONS: [id number] Special Diet: [id number] Regular ACTIVITY: [id number] Activity Restrictions: Tdoes1d No Sexual Activity FOLLOW UP/APPOINTMENTS Follow-up Plan 1. See your senior information developer within 1 week. 2. Take all medications as prescribed. CATHERINE BEEBE MD Jun 03, 2018 10:26
--- NOTE | 2018-06-03 11:12 | CONS ---
Date/Time of Note Date/Time of Note DATE: 06/03/18 TIME: 11:09 Assessment/Plan Assessment/Plan Hospital Course No acute changes, alert, feels good, no fevers CT of the abdomen revealed pelvic inflammatory disease and right-sided tubo- ovarian abscess also left sided salpingitis without definite left tubo-ovarian abscess. Inflammatory changes of the mid to distal ureters right greater than left without evidence of hydronephrosis at this time Antimicrobials: Meropenem Doxycycline. Physical examination: Well-nourished well-developed middle-aged woman who is alert in no distress. Head atraumatic normocephalic sclera nonicteric neck is supple chest rise symmetrical breath sounds clear heart S1-S2 abdomen soft patient has tenderness on palpation more on the right. Extremities without edema or cyanosis. Assessment: 1. Pelvic inflammatory disease with right-sided tubo-ovarian abscess versus acute pyelonephritis 2. 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6 H Lymphocytes # 2.1 Monocytes # 0.5 Eosinophils # 0.2 Basophils # 0.1 Nucleated Red Blood Cells # 0.0 Sodium Level 141 Potassium Level 3.8 Chloride Level 107 Carbon Dioxide Level 24 Anion Gap 10 Blood Urea Nitrogen 7 Creatinine 0.49 Est Glomerular Filtrat Rate mL/min > 60 Glucose Level 103 Calcium Level 8.7 Iron Level 25 L Total Iron Binding Capacity 341 Percent Iron Saturation 7 L Ferritin 26.0 Consultation Date/Type/Reason Admit Date/Time May 30, 2018 at 11:32 Initial Consult Date Type of Consult id Exam/Review of Systems Vital Signs Vitals Vital Signs Date Temp Pulse Resp B/P (MAP) Pulse Ox O2 O2 Flow FiO2 Time Delivery Rate 06/03/18 98.6 88 16 108/64 94 Room Air 07:20 (79) Intake and Output 06/02/18 06/02/18 06/03/18 1515:00 23:00 07:00 IntakeIntake Total 1300 ml 1900 ml 250 ml BalanceBalance 1300 ml 1900 ml 250 ml Medications Medications Current Medications IV Flush (NS 3 ml) 3 ml PER PROTOCOL IV ; Start 05/30/18 at 13:30 Ondansetron HCl (Zofran Inj) 4 mg Q6H PRN IV NAUSEA AND/OR VOMITING Last administered on 06/03/18at 06:44; Admin Dose 4 MG; Start 05/30/18 at 13:30 Acetaminophen/ Hydrocodone Bitart (Brooten (5/325)) 1 tab Q6H PRN PO MODERATE PAIN LEVEL 4-6; Start 05/30/18 at 13:30 Docusate Sodium (Colace) 100 mg Q12H PRN PO CONSTIPATION; Start 05/30/18 at 13:30 Magnesium Hydroxide (Milk Of Mag) 30 ml DAILY PRN PO CONSTIPATION; Start 05/30/18 at 13:30 Pantoprazole (Protonix Iv) 40 mg DAILY@06 IV Last administered on 06/03/18at 06:18; Admin Dose 40 MG; Start 05/31/18 at 06:00 Albuterol/ Ipratropium (Duoneb) 3 ml Q4H RESP THERAPY PRN HHN SHORTNESS OF BREATH; Start 05/30/18 at 13:30 Hydralazine HCl (Apresoline) 10 mg Q6H PRN IV ELEVATED BLOOD PRESSURE; Start 05/30/18 at 13:30 Nitroglycerin (Nitroglycerin (Sl Tab) 0.4 Mg) 1 tab Q5M PRN SL ANGINA; Start 05/30/18 at 13:30 Doxycycline Hyclate 100 mg/ Sodium Chloride 250 ml @ 250 mls/hr Q12 IVPB Last administered on 06/03/18at 09:43; Admin Dose 250 MLS/HR; Start 05/30/18 at 21:00 Zolpidem Tartrate (Ambien) 5 mg HS PRN PO INSOMNIA; Start 05/30/18 at 16:00 Acetaminophen (Tylenol Tab) 1,000 mg Q6H PRN PO PAIN LEVEL 1-3 OR FEVER Last administered on 06/02/18at 17:23; Admin Dose 1,000 MG; Start 05/30/18 at 16:00 Meropenem/Sodium Chloride 50 ml @ 100 mls/hr Q12 IVPB Last administered on 06/02/18at 20:27; Admin Dose 100 MLS/HR; Start 05/30/18 at 21:00 Ibuprofen (Motrin) 600 mg Q6H PRN PO MILD PAIN LEVEL 1-3 Last administered on 06/03/18at 07:43; Admin Dose 600 MG; Start 05/31/18 at 14:30 Guaifenesin (Robitussin Liquid Cup) 400 mg Q4H PRN PO COUGH Last administered on 06/01/18at 20:33; Admin Dose 400 MG; Start 05/31/18 at 14:30 Ferric Sodium Gluconate Complex 125 mg/Sodium Chloride 100 ml @ 100 mls/hr ONCE ONCE IVPB ; Start 06/03/18 at 13:00; Stop 06/03/18 at 13:59 JUAN KIRK NP Jun 03, 2018 11:12
[2018-06-03] MEDS: MEROPENEM 1 GM/50ML(PMX) 50 ML IVPB SCH (11:43)
[2018-06-03] MEDS: ACETAMINOPHEN 500 MG TAB PO PRN (12:54)
[2018-06-03] MEDS ORDERED: SOD FERRIC GLUC COMPLX 125 MG in SOD CHLORIDE 0.9% 100 ML IVPB ONE (13:00)
[2018-06-03 14:05] VITALS: BP 128/68; PULSE 86; RESP 16
[2018-06-03] MEDS: GUAIFENESIN 20 MG/ML 5ML CUP PO PRN (14:59)
--- NOTE | 2018-06-03 16:53 | DS ---
Date/Time of Note Date/Time of Note DATE: 06/03/18 TIME: 16:50 Discharge Summary Admission/Discharge Info Admit Date/Time May 30, 2018 at 11:32 Discharge Date/Time Jun 03, 2018 at 15:15 Discharge Diagnosis Pelvic inflammatory disease; tubo-ovarian abscess Patient Condition: Good Consults Dr. Narayanan, gynecology. Procedures None Hx of Present Illness 47-year-old female with no significant past medical history who was sent over from outside hospital due to insurance purposes. She presented earlier this morning with right flank pain and right lower quadrant pain. She had some subjective fevers and chills as well she had some mild dysuria as well complaints the symptoms have been going on for 2 days prior to the visit to the ER this morning. Denies any nausea vomiting no chest pain or shortness of breath no upper or lower GI bleeding she says that she has been having some abnormal vaginal her heavy periods but this is been going on for some time her main complaint is the right lower quadrant pain. When she presented to the outside hospital she was found with a white blood cell count 21,[address] scan abdomen and pelvis which showed signs of a right-sided tubo-ovarian abscess. She received Rocephin and doxycycline over there in the emergency room before being transferred over here and blood cultures were ordered along with chlamydia and gonorrhea tests. Patient denies any prior history of any pelvic infections. Hospital Course CT abdomen/pelvis was repeated here, confirmed diagnosis of PID and R tubo- ovarian abscess as well as uterine fibroids. The patient was started on IV doxycycline and meropenem. IR was consulted for drainage of the abscess, but this location is not reachable by CT-guided needle. Dr. Narayanan with gynecology was consulted. The patient is not in his insurance network and no urgent surgery needed, so he did not operate. Over the hospital course the patient did have heavy menses and abdominal cramping; but pain was controlled with heat pads and ibuprofen. WBC normalized. Plan to discharge on oral antibiotics with plan to followup with outpatient gynecology. Home Meds Active Scripts Ondansetron Hcl* (Ondansetron Hcl*) 4 Mg Tablet, 4 MG PO Q6H PRN for NAUSEA, #14 TAB Prov:CATHERINE BEEBE MD 06/03/18 Ibuprofen* (Ibuprofen*) 600 Mg Tablet, 600 MG PO Q6H PRN for MILD PAIN LEVEL 1- 3, #30 TAB Prov:CATHERINE BEEBE MD 06/03/18 Metronidazole* (Flagyl*) 500 Mg Tablet, 500 MG PO BID, #28 TAB Prov:CATHERINE BEEBE MD 06/03/18 Doxycycline Hyclate (MORGIDOX) 100 Mg Capsule, 100 MG PO BID, #28 CAP Prov:CATHERINE BEEBE MD 06/03/18 Follow-up Plan 1. See your research consultant within 1 week. 2. Take all medications as prescribed. Primary Care Provider Migel Barboza Time spent on discharge: > 30 minutes Pending Labs Laboratory Tests Test 06/03/18 05:08 White Blood Count 10.7 10^3/ul (4.8-10.8) Red Blood Count 3.42 10^6/ul (4.20-5.40) Hemoglobin 8.1 g/dl (12.0-16.0) Hematocrit 26.3 % (37.0-47.0) Mean Corpuscular Volume 76.9 fl (82.0-101.0) Mean Corpuscular Hemoglobin 23.7 pg (29.0-33.0) Mean Corpuscular Hemoglobin Concent 30.8 g/dl (32.0-37.0) Red Cell Distribution Width 14.6 % (11.5-14.5) Platelet Count 574 10^3/UL (140-415) Mean Platelet Volume 9.4 fl (7.4-10.4) Immature Granulocytes % 0.700 % (0.001-0.429) Neutrophils % 71.5 % (39.0-77.0) Lymphocytes % 19.9 % (15.0-51.0) Monocytes % 5.1 % (0.0-11.0) Eosinophils % 1.8 % (0.0-7.0) Basophils % 1.0 % (0.0-2.0) Nucleated Red Blood Cells % 0.0 /100WBC (0.0-0.0) Immature Granulocytes # 0.080 10^3/ul (0.0-0.031) Neutrophils # 7.6 10^3/ul (1.6-7.5) Lymphocytes # 2.1 10^3/ul (0.8-2.9) Monocytes # 0.5 10^3/ul (0.3-0.9) Eosinophils # 0.2 10^3/ul (0.0-0.5) Basophils # 0.1 10^3/ul (0.0-0.1) Nucleated Red Blood Cells # 0.0 10^3/ul (0.0-0.0) Sodium Level 141 mmol/L (135-144) Potassium Level 3.8 mmol/L (3.5-5.1) Chloride Level 107 mmol/L (97-110) Carbon Dioxide Level 24 mmol/L (21-31) Anion Gap 10 (5-13) Blood Urea Nitrogen 7 mg/dl (7-20) Creatinine 0.49 mg/dl (0.44-1.00) Est Glomerular Filtrat Rate mL/min > 60 mL/min (>60) Glucose Level 103 mg/dl (70-220) Calcium Level 8.7 mg/dl (8.4-10.2) Iron Level 25 ug/dl (35-150) Total Iron Binding Capacity 341 ug/dl (241-421) Percent Iron Saturation 7 % SAT (22-52) Ferritin 26.0 ng/ml (6.2-137.0) CATHERINE BEEBE MD Jun 03, 2018 16:53
== END 2018-06-03 15:15 | disposition home or self-care (01) | DRG 758 ==
LOC: PP2 11:32
PROVIDERS: ADMIT Internal Medicine; ATTEND Internal Medicine
DX: N70.03 Acute salpingitis and oophoritis (principal); N12 Tubulo-interstitial nephritis, not specified as acute or chronic; N73.9 Female pelvic inflammatory disease, unspecified; E66.9 Obesity, unspecified; Z68.33 Body mass index [BMI] 33.0-33.9, adult
CPT/HCPCS: 74177; 80048; 80061; 81001; 82105; 82728; 83036; 83540; 83605; 83735; 84100; 84439; 84443; 84702; 85025; 85610; 85730; 86304; 87040; 87081; 87086; 97110; 97116; 97161; 97530; C9113; J0131; J0696; J1644; J2060; J2185; J2274; J2405; J2916; J7050; Q9967

== ENCOUNTER 2018-12-07 06:16 | Day surgery (SDC) | payer BC ==
[~2018-12-07] VITALS: Ht 157.5 cm; Wt 94.8 kg
[2018-12-07] VITALS (17 sets, daily range): BP systolic 98–138; BP diastolic 58–108; PULSE 58–82; RESP 9–36; Ht 157.5 cm; Wt 94.8 kg
[~2018-12-07 06:16] MED LIST: IBUP-1542 PO; LACTATED RINGER'S 1,000 ML IV SCH; METR500T PO; ONDA4TAB95 PO; SOD CHLORIDE 0.9% 1,000 ML IV SCH; [UNRECOGNIZED DRUG - CODE] PO
--- NOTE | 2018-12-07 08:56 | PREAC ---
Date/Time of Note Date/Time of Note DATE: 12/07/18 TIME: 08:55 Anesthesia Eval and Record Evaluation Time Pre-Procedure Interview DATE: 12/07/18 TIME: 08:55 Age 48 Sex female NPO: 8 hrs Preoperative diagnosis vaginal abscess Planned procedure D&C Past Medical History Past Medical History: Includes GI: Obesity Surgery & Anesthesia Issues No known issue Meds Anticoagulation: No Beta Florentino within 24 hr: No Reason Beta Florentino not given: Pt. not on B-Florentino Discontinued Scripts Ondansetron Hcl* (Ondansetron Hcl*) 4 Mg Tablet, 4 MG PO Q6H PRN for NAUSEA, #14 TAB Prov:CATHERINE BEEBE MD 06/03/18 Ibuprofen* (Ibuprofen*) 600 Mg Tablet, 600 MG PO Q6H PRN for MILD PAIN LEVEL 1- 3, #30 TAB Prov:CATHERINE BEEBE MD 06/03/18 Metronidazole* (Flagyl*) 500 Mg Tablet, 500 MG PO BID, #28 TAB Prov:CATHERINE BEEBE MD 06/03/18 Doxycycline Hyclate (MORGIDOX) 100 Mg Capsule, 100 MG PO BID, #28 CAP Prov:CATHERINE BEEBE MD 06/03/18 Current Medications Lactated Ringer's 1,000 ml @ 25 mls/hr Q24H IV ; Start 12/07/18 at 06:00 Sodium Chloride 1,000 ml @ 25 mls/hr Q24H IV ; Start 12/07/18 at 06:00 Meds reviewed: Yes Allergies Coded Allergies: No Known Allergy (Unverified , 12/07/18) Allergies Reviewed: Yes Labs/Studies Labs Reviewed: Reviewed by anesthesiologist test: Negative Pre-procedure Exam Last vitals Vital Signs Date Temp Pulse Resp B/P (MAP) Pulse Ox O2 O2 Flow FiO2 Time Delivery Rate 12/07/18 98.8 82 16 126/80 97 Room Air 08:25 (95) Airway: Adequate mouth opening, Adequate thyromental dist Mallampati: Mallampati II Teeth: Normal Lung: Normal Heart: Normal ASA Physical Status ASA physical status: 2 Emergency: None Planned Anesthetic General/MAC: ETT Pre-operative Attestations Prior to commencing anesthesia and surgery, the patient was re-evaluated, there was verification of: *The patient's identity *The results of appropriate recent lab work and preoperative vital signs *The above evaluation not changing prior to induction *Anesthetic plan, risk benefits, alternative and complications discussed with patient/family; questions answered; patient/family understands, accepts and wishes to proceed. GERMAN APPIAH Dec 07, 2018 08:56
[2018-12-07] MEDS ORDERED: DIPHENHYDRAMINE 50 MG INJ IV PRN (09:00)
[2018-12-07] MEDS ORDERED: FENTAnyl 50 MCG/ML VIAL IV PRN ×2 (09:00)
[2018-12-07] MEDS ORDERED: MEPERIDINE 25 MG INJ IV PRN (09:00)
[2018-12-07] MEDS ORDERED: ONDANSETRON 4 MG INJ IV PRN (09:00)
[2018-12-07] MEDS ORDERED: METOCLOPRAMIDE 10 MG INJ IV PRN (09:00)
[2018-12-07] MEDS ORDERED: ALBUTEROL 0.083% (NEB) 2.5 MG/3 ML AMP HHN PRN (09:00)
[2018-12-07] MEDS ORDERED: HYDROmorphONE 1 MG/5 ML IV SYRINGE IV PRN ×3 (09:00)
[2018-12-07] MEDS ORDERED: FENTAnyl 50 MCG/ML VIAL ONE (09:57)
[2018-12-07] MEDS ORDERED: MIDAZOLAM 1 MG/ML 2 ML INJ ONE (09:57)
[2018-12-07] MEDS ORDERED: DESFLURANE 15 MIN ONE (10:00)
[2018-12-07] MEDS ORDERED: GLYCOPYRROLATE 0.4 MG INJ ONE (10:00)
[2018-12-07] MEDS ORDERED: PROPOFOL 20 ML ONE (10:06)
[2018-12-07] MEDS ORDERED: SUCCINYLCHOLINE CHLORIDE 100 MG/5 ML SYG IV ONE (10:06)
[2018-12-07] MEDS ORDERED: SUGAMMADEX SODIUM 200 MG/2 ML VIAL IV ONE (10:06)
[2018-12-07] MEDS ORDERED: ROCURONIUM 50 MG INJ ONE (10:06)
[2018-12-07] MEDS ORDERED: LIDOCAINE 100 MG SYRINGE ONE (10:06)
--- NOTE | 2018-12-07 10:25 | SIPON ---
Date/Time of Note Date/Time of Note DATE: 12/07/18 TIME: 10:23 Operative Report Preoperative Diagnosis Abnormal uterine bleeding Postoperative Diagnosis Same Operation/Procedure Performed D&C Surgeon Memo Burch MD therapeutic assistant None Anesthesia: general Estimated blood loss: minimal Transfusion Required none Specimen ECC and EMC Grafts/Implants none Complications none MEMO BURCH MD Dec 07, 2018 10:25
--- NOTE | 2018-12-07 12:48 | PREOPHP ---
DATE OF ADMISSION: 12/07/2018 HISTORY OF PRESENT ILLNESS: A 48-year-old female 3, para 3, last menstrual period 11/22/2018 . She is admitted with history of abnormal uterine bleeding. PAST MEDICAL HISTORY: Unremarkable. PAST SURGICAL HISTORY: section x3 and bilateral tubal ligation. ALLERGIES: NO KNOWN ALLERGIES. FAMILY HISTORY: Noncontributory. PHYSICAL EXAMINATION: VITAL SIGNS: The patient is afebrile. Vital signs stable. HEAD, NECK AND CHEST: Within normal limits. ABDOMEN: Soft, nontender, nondistended. PELVIC: Normal. EXTREMITIES: Within normal limits. NEUROLOGIC: Within normal limits. IMPRESSION: Abnormal uterine bleeding. PLAN: Dilation and curettage. Risks, benefits and alternatives of procedure were explained to pinky lugo. The patient said she understood and gave informed consent for the procedure. Dictated By: MEMO BURCH MD GD/NTS Conf#: [id number] DID#: [id number] CC: DL LIMA MD;*End*
--- NOTE | 2018-12-07 12:58 | OPR ---
DATE OF OPERATION: 12/07/2018 PREOPERATIVE DIAGNOSIS: Abnormal uterine bleeding. POSTOPERATIVE DIAGNOSIS: Abnormal uterine bleeding. OPERATION PERFORMED: Dilation and curettage. SURGEON: Memo Yeh MD ANESTHESIA: General. ANESTHESIOLOGIST: Omero Hickman MD PROCEDURE: The patient was taken to the operating room and placed on the operating table in supine p osition. After adequate general anesthesia was given, the patient was placed in dorsal lithotomy pos ition. The area was prepared and draped in the usual sterile fashion. Speculum was placed inside th e vagina and tenaculum was used to grasp the anterior lip of the cervix. Using a Kevorkian curet, en docervical curettage was performed and specimen obtained was sent to pathology. Next, using cervical dilators, the cervical os was dilated. Using sharp curet, endometrial curettage was performed and s pecimen obtained was sent to pathology. All the instruments were removed. Adequate hemostasis was a ssured. Patient tolerated the procedure well. Patient was awakened from anesthesia and transferred to recovery in stable condition. ESTIMATED BLOOD LOSS: Minimal. COUNTS: All counts were correct. Dictated By: MEMO FELDMAN/NTS Conf#: [id number] DID#: [id number]
--- NOTE | 2018-12-08 07:37 | PAC ---
Date/Time of Note Date/Time of Note DATE: 12/08/18 TIME: 07:37 Post-Anesthesia Notes Post-Anesthesia Note Last documented vital signs Vital Signs Date Temp Pulse Resp B/P (MAP) Pulse Ox O2 O2 Flow FiO2 Time Delivery Rate 12/07/18 97.7 69 16 121/58 98 Room Air 12:09 (79) 12/07/18 8.0 10:38 Activity: WNL Respiratory function: WNL Cardiovascular function: WNL Mental status: Baseline Pain reasonably controlled: Yes Hydration appropriate: Yes Nausea/Vomiting absent: Yes GERMAN APPIAH Dec 08, 2018 07:37
== END 2018-12-07 15:00 | disposition home or self-care (01) ==
LOC: SDS 06:16
PROVIDERS: ATTEND Obstetrics & Gynecology
DX: N93.9 Abnormal uterine and vaginal bleeding, unspecified (principal)
CPT/HCPCS: 58120; 84703; 86850; 86900; 86901; 88305; J2001; J2250; J2405; J3010; Z7512; Z7610